=== PATIENT | male | born 1985 | race Caucasian/White ===

== ENCOUNTER → 2020-12-24 | Outpatient (CLI) | payer OTHER ==
--- NOTE | 2020-12-31 12:33 | KCIC ---
Magnetic resonance angiography (MRA) of the brain without contrast INDICATION: COMPARISON: TECHNIQUE: Magnetic resonance angiography of the crow of [place] was performed without intravenous c ontrast. [id number] technique was utilized with maximum intensity projection images provided for further evaluation of the cerebral vasculature. FINDINGS: There is no diffusion signal hyperintensity suggest acute or subacute ischemia. FLAIR images without suspicious intracranial abnormality. Bilateral choroid plexus cysts are identified. Posterior fossa i s normal in appearance. [place]: Course and caliber of the intracranial internal carotid arteries is normal. Anterior cerebral arterie s are normal. Middle cerebral arteries and sylvian branches are normal in caliber. Vertebral arteries are codominant. Basilar artery is normal in course and caliber. Posterior cerebral arteries are normal in course and caliber. Superior cerebellar arteries, anterior inferior cerebella r arteries and posterior inferior cerebellar arteries are normal. There is no aneurysm, vascular malformation or high-grade stenosis/large vessel occlusion. IMPRESSION: 1. Patent crow of [place] without evidence for aneurysm, vascular malformation or high-grade stenosi s/large vessel occlusion. 2. No evidence for acute or subacute ischemia. Electronically signed by: Gabbie Doss MD (12/31/2020 12:30 PM) [id number]
== END ==
LOC: KCIC MRI 10:03
PROVIDERS: ATTEND Family Medicine
DX: G44.019 Episodic cluster headache, not intractable (principal)
CPT/HCPCS: 70544